=== PATIENT | female | born 1995 | race Caucasian/White ===

== ENCOUNTER 2023-09-08 11:31 | Outpatient (REF) | payer OTHER, SELFPAY ==
[2023-09-08 12:44] LABS: MANUAL DIFF FLAG NO
[2023-09-08 12:57] LABS: Basophils Percent Auto 0.4 % (0-2); Eosinophils Absolute Auto 0.1 X10*3/uL (0.0-0.4); Eosinophils Percent Auto 0.8 % (0-4); Hematocrit 42.7 % (37.0-47.0); Hemoglobin 14.2 g/dl (12.0-16.0); Imm Gran Abs Auto 0.04 X10*3/uL (0.00-0.03); Imm Gran Pct Auto 0.4 % (0.0-0.4); Mean Corpuscular HGB Conc 33.3 g/dl (31.0-35.0); Mean Corpuscular Hemoglobin 28.2 pg (27.0-33.0); Mean Corpuscular Volume 84.7 fL (80.0-98.0); Mean Platelet Volume 12.5 fL (9.4-12.3); Monocytes Absolute Auto 0.5 X10*3/uL (0.1-1.2); Monocytes Percent Auto 4.6 % (2-11); Neutrophils Absolute Auto 7.1 x10*3/uL (2.0-8.3); Neutrophils Percent Auto 65.8 % (45-73); Platelet Count 286 X10*3/uL (160-400); Red Blood Count 5.04 X10*6/uL (4.20-5.50); Red Cell Distribution Width 12.8 % (11.0-16.0); White Blood Count 10.7 X10*3/uL (4.8-10.8)
[2023-09-08 13:32] LABS: Alanine Aminotransferase 19 U/L (0-31); Albumin Level 4.6 g/dL (3.5-5.0); Alkaline Phosphatase 105 U/L (39-117); Anion Gap 14 (12-20); Aspartate Amino Transferase 20 U/L (5-31); Bilirubin Total 0.5 mg/dL (0.0-1.0); Blood Urea Nitrogen 10 mg/dL (9-16); Carbon Dioxide 25 mmol/L (22-29); Chloride 108 mmol/L (96-108); Estimated Glomerular Filt Rate > 60; Glucose Random 89 mg/dL (60-115); Potassium 3.7 mmol/L (3.3-5.1); Sodium 143 mmol/L (135-145); Total Protein 7.7 g/dL (6.5-8.0)
[2023-09-08 13:45] LABS: Erythrocyte Sedimentation Rate 12 MM/HR (0-20)
[2023-09-08 13:46] LABS: Thyroid Stimulating Hormone 1.32 uIU/mL (0.32-4.0)
[2023-09-09 18:45] LABS: CDiff Gene PCR NEGATIVE (Negative)
[2023-09-10 07:53] LABS: Transglutaminase IgA <1.0 U/mL
[2023-09-10 09:50] LABS: Adenovirus F 40/41 Not Detected (Not Detect.); Astrovirus Not Detected (Not Detect.); Campylobacter Not Detected (Not Detect.); Cryptosporidium Not Detected (Not Detect.); Cyclospora cayetanensis Not Detected (Not Detect.); E. coli EAEC Not Detected (Not Detect.); E. coli EPEC Not Detected (Not Detect.); E. coli ETEC Not Detected (Not Detect.); E. coli STEC Not Detected (Not Detect.); Entamoeba histolytica Not Detected (Not Detect.); Giardia lamblia Not Detected (Not Detect.); Plesiomonas shigelloides Not Detected (Not Detect.); Rotavirus A Not Detected (Not Detect.); Salmonella Not Detected (Not Detect.); Sapovirus Not Detected (Not Detect.); Shigella sp./EIEC Not Detected (Not Detect.); Vibrio Not Detected (Not Detect.); Vibrio Cholerae Not Detected (Not Detect.); Yersinia enterocolitica Not Detected (Not Detect.)
[2023-09-11 13:47] LABS: Endomysial IgA Antibody Negative (Negative)
[2023-09-12 16:47] LABS: Vitamin D 25-OH, D2 <4 ng/mL; Vitamin D 25-OH, D3 23 ng/mL; Vitamin D 25-OH, Total 23 ng/mL (30-100)
[2023-09-17 18:14] LABS: Calprotectin, Fecal 14 mcg/g
== END 2023-09-08 11:32 | disposition home or self-care (01) ==
LOC: HO.LAB 11:31
PROVIDERS: PCP Nurse Practitioner Family; Referring Provider Nurse Practitioner Family; Visit Provider Physician Assistant
DX: K52.9 Noninfective gastroenteritis and colitis, unspecified (principal); R19.8 Other specified symptoms and signs involving the digestive system and abdomen
CPT/HCPCS: 36415; 80053; 82306; 83993; 84443; 85025; 85652; 86231; 86364; 87493; 87507

== ENCOUNTER 2023-09-08 11:31 | Outpatient (AMB) | payer OTHER, SELFPAY ==
--- NOTE | 2023-09-08 11:46 | A.OFFVIS_ITS ---
Vital Signs 09/08/23 11:50 Height 5 ft 3 in Weight 220 lb BMI 39.0 BP 132/61 Blood Pressure Location Lt brachial Position Sitting Pulse 87 Intake Visit Reasons: Chronic Loose stool Intake Note: Patient new consult for loose stool. Patient cc: loose stool on and off, vomit every other week, abdominal pain with bloating, acid refle x with some burning sensation, always tired. 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 Accompanied by: Self / Same As Patient Allergies doxycycline Allergy (Severe, Verified 09/08/23 11:45) Hives Medication List - Last Reconciled 09/08/23 by Brandi Miller PA-C cholecalciferol (vitamin D3) 25 mcg PO DAILY HPI Comments Details: A 27 y/o female-inconsisitent bowel pattern - no solid BM-loose She has 0-3 BM daily- x 4 weekly- She has bloating from time to time- She occ vomits [place] in June- sx prior No blood, fever chills Single, no kids, stressed out sometimes- [facility] Surgical History History of surgical procedure on eye proper using laser History of surgery on wrist Social History Household Members: Family Alcohol intake: never Patient Tobacco Use Status: Never used Tobacco Review of Systems Const All systems reviewed & are unremarkable except as noted in HPI and below Card Denies chest pain GI Reports bloating, Reports change in bowel habits and Reports nausea Psych Reports anxiety Physical Exam Vital Signs: Last Vital Signs Pulse 87 09/08/23 11:50 BP 132/61 09/08/23 11:50 BMI result Body Mass Index 39.0 Const General: cooperative, healthy appearing, comfortable, no acute distress and anxious Orientation/consciousness: patient oriented x3 Limitations: no limitations Resp Effort & Inspection: normal respiratory effort and able to speak in complete sentences Auscultation: clear to auscultation bilaterally, no rales, no rhonchi and no wheezes Cardio Rate: regular rate Rhythm: regular rhythm Heart sounds: S1 normal heart sound present and S2 normal heart sound present GI Palpation (GI): Soft to palpation and nontender Auscultation: normal bowel sounds Skin General skin exam: no rashes or lesions noted Neuro General: patient oriented x3 Extrem General: Yes full ROM Psych Appearance: grossly normal and well kempt Mental Status: mental status grossly normal Speech and movement: Normal speech and movement present and Clear speech present Affect: Anxious affect present Attitude: cooperative Thought process: Normal thought process present Thought content: Normal thought content present Insight: Good insight present (Psych) Judgement: Good judgement present (Psych) Assessment & Plan Assessment & Plan (1) IBS (irritable bowel syndrome): Comment: anxious-MLC irritable bowel will workup further to assess for underlying cause of sx Code(s): K58.9 - Irritable bowel syndrome without diarrhea Category: Medical Plan labs stools dicyclomine Orders: Orders CDiff Gene PCR 09/09/23 R19.7 - Diarrhea, unspecified Calprotectin, Fecal 09/09/23 R19.7 - Diarrhea, unspecified Comprehensive Met. Panel 09/08/23 K58.9 - Irritable bowel syndrome without diar berry GI Panel 09/09/23 R19.7 - Diarrhea, unspecified Complete Blood Count Auto Diff 09/08/23 K52.9 - Noninfective gastroenteritis and colitis, unspecified Vitamin D 25-OH (D2 and D3) 09/08/23 K58.9 - Irritable bowel syndrome without diarrhea Erythrocyte Sedimentation Rate 09/08/23 R19.7 - Diarrhea, unspecified Endomysial IgA rflx Titer 09/08/23 K58.9 - Irritable bowel syndrome without diarrhea Transglutaminase IgA 09/08/23 R19.7 - Diarrhea, unspecified Thyroid Stimulating Hormone 09/08/23 R19.8 - Other specified symptoms and signs involving the digestive system and abdomen Medications: New dicyclomine 10 mg PO TID 90 caps 0RF Patient Instructions: 27-year-old anxious female alternating stool She will do labs and stool tests Stress reduction Call with concerns Will follow-up for progress Coding Level of Care Code New Pt Level 3 (94606) Diagnoses IBS (irritable bowel syndrome) K58.9 Time Spent (min) 30
[2023-09-08 11:50] VITALS: BP 132/61; PULSE 87; BMI 39.0
== END 2023-09-08 12:25 | disposition home or self-care (01) ==
PROVIDERS: Referring Provider Nurse Practitioner Family; Visit Provider Physician Assistant
DX: K58.9 Irritable bowel syndrome, unspecified (principal)
CPT/HCPCS: 99203